=== PATIENT | male | born 1970 | race African-American/Black ===

== ENCOUNTER 2020-06-11 13:41 | Emergency (ER) | payer OTHER, SELFPAY ==
[~2020-06-11] VITALS: Ht 180.3 cm; Wt 83.0 kg
[2020-06-11 18:00] VITALS: BP 138/90
== END 2020-06-11 18:11 | disposition home or self-care (01) ==
LOC: ER 13:41
DX: R50.9 Fever, unspecified (principal); Z20.828 Contact with and (suspected) exposure to other viral communicable diseases; I49.9 Cardiac arrhythmia, unspecified
CPT/HCPCS: 71045; 87635; 93005; 99285